=== PATIENT | female | born 1975 | race Caucasian/White ===

== ENCOUNTER 2024-08-12 12:11 | Emergency (ER) | payer OTHER, SELFPAY ==
[2024-08-12] VITALS (11 sets, daily range): BP systolic 98–125; BP diastolic 58–81; BMI 24.5
[2024-08-12 12:41] LABS: % Basophils 1.3 % (0-2); % Eosinophils 2.8 % (0-6); % Immature Granulocytes 0.2 % (0-0.5); % Lymphocytes 30.1 % (20.5-51.1); % Monocytes 7.3 % (1.7-9.3); % Neutrophils 58.3 % (42.2-75.2); Absolute Basophils 0.1 10^3/uL (0-0.2); Absolute Eosinophils 0.2 10^3/uL (0-0.7); Absolute Lymphocytes 2.5 10^3/uL (1.2-3.4); Absolute Monocytes 0.6 10^3/uL (0.1-0.6); Absolute Neutrophils 4.8 10^3/uL (1.4-6.5); Hemoglobin 12.2 g/dL (12.0-16.0); Mean Corp Hgb Conc. 33.9 g/dL (33.0-37.0); Mean Corpuscular Hgb 31.1 pg (27.0-31.0); Mean Corpuscular Volume 91.8 fL (81.0-99.0); Mean Platelet Volume 10.3 fL (7.4-10.4); Nucleated Red Blood Cells % 0 %; Platelet Count 266 10^3/uL (130-400); Red Blood Cell Count 3.92 10^6/uL (4.20-5.40); Red Cell Dist. Width 12.1 % (11.5-14.5); White Blood Cell Count 8.3 10^3/uL (4.8-10.8)
[2024-08-12 12:54] LABS: ALT (SGPT) 13 U/L (0-35); AST (SGOT) 17 U/L (14-36); Albumin 4.2 g/dl (3.5-5.0); Alkaline Phosphatase 42 U/L (38-126); Blood Urea Nitrogen 19 mg/dl (7-17); Calcium 9.5 mg/dl (8.4-10.2); Carbon Dioxide 27 mmol/L (22-30); Chloride 101 mmol/L (98-107); Glucose 112 mg/dl (70-99); Potassium 4.2 mmol/L (3.5-5.1); Sodium 139 mmol/L (135-145); Total Bilirubin 0.3 mg/dl (0.2-1.3); Total Protein 6.8 g/dl (6.3-8.2); eGFR > 60.00
[2024-08-12 13:07] LABS: Troponin I < 0.012 ng/ml
--- NOTE | 2024-08-12 13:20 | ED.GENMED ---
History of Present Illness
<Jonas Gotti, DO - Last Filed: 08/12/24 15:51>
General
Chief Complaint: Anxiety
Source: patient, spouse, family and ambulance crew
Exam Limitations: none
Time Seen by Provider: 08/12/24 13:19
Nursing documentation reviewed up to this point in time: agreed with
History of Present Illness
History of Present Illness:
48-year-old female presents emergency department after being out to lunch, having tremors, panicking hyperventilating and feeling her entire body was numb. Her lowered her to the ground. She was responsive answering questions during this
time. She complains of right-sided chest pain and a headache.
Past History
<Jonas Gotti, DO - Last Filed: 08/12/24 15:51>
Past History
ED Past Medical History: Cancer (Thyroid), HTN, Psychiatric (Depression and anxiety) and Other (Migraines)
Social History
Tobacco: Former smoker
Alcohol: Former
Personal:
Living: with family
Review of Systems
<Jonas Gotti, DO - Last Filed: 08/12/24 15:51>
Review of Systems
Allergies reviewed?: Yes
All Other Systems: Not applicable
Constitutional: Reports no symptoms
EENT: Reports no symptoms
Respiratory: Reports no symptoms
Cardiac: Reports chest pain and syncope (Near syncope)
ABD/GI: Reports no symptoms
: Reports no symptoms
Musculoskeletal: Reports no symptoms
Skin: Reports no symptoms
Neurological: Reports no symptoms
Endocrine: Reports no symptoms
Hematologic/Lymphatic: Reports no symptoms
Psychiatric: Reports no symptoms
Phy Exam
<Jonas Gotti, DO - Last Filed: 08/12/24 15:51>
Physical Exam
Physical Exam:
Physical Exam
General: no apparent distress, not acutely ill
Neck: supple. no meningeal signs. normal posterior pharynx
Heart: s1/s2 regular rate and rhythm, no murmur. equal radial
pulses.
HEENT: Pupils equal round reactive to light, EOMI
Lungs: no acute respiratory distress. clear bilaterally
Abdomen: normal bowel sounds. not tender. no CVAT
Neuro: alert and oriented. no focal neurological deficits cranial nerves II through XII intact
Skin: no rash
Psychiatric: well kept. interactive and cooperative
Extremities: no edema. no calf tenderness. negative homans. good distal pulses
Course
<oJnas Gotti, DO - Last Filed: 08/12/24 15:51>
Orders/Labs/Results
Orders:
Orders
08/12/24 12:19
ECG [Electrocardiogram (*1)] Urgent
Reason for Study: Chest Pain
EKG- Treatment ONCE
08/12/24 12:31
Complete Blood Count/With Diff Urgent
Comprehensive Metabolic Panel Urgent
HCG, Serum Qualitative Screen Urgent
Comment: ADD ON
TSH Reflex To Free T4 Urgent
Troponin I Urgent
08/12/24 13:40
CT Head W/o Iv Contrast Urgent
Comment:
Reason For Exam: headache, near syncope
08/12/24 13:41
D-Dimer Urgent
Troponin I Urgent
08/12/24 13:44
Add On- LAB Urgent
Tests Added?: hcg qual
08/12/24 14:50
Add On- LAB Urgent
Tests Added?: serum HCG qual
08/12/24 18:07
0.9% Sodium Chloride 1000 ml [Nss] 1,000 ml IV BOLUS
Ketorolac [Toradol] 15 mg IV NOW STA
Abnormal Lab Results
08/12/24
12:31
RBC 3.92 L 10^6/uL
(4.20-5.40)
Hct 36.0 L %
(37.0-47.0)
MCH 31.1 H pg
(27.0-31.0)
BUN 19 H mg/dl
(7-17)
Glucose 112 H mg/dl
(70-99)
08/12/24 12:31
08/12/24 12:31
Vital Signs
Initial and Last Documented VS:
Initial Vital Signs
Temp Pulse Resp BP Pulse Ox
98.1 F 81 18 122/70 99
08/12/24 12:12 08/12/24 12:12 08/12/24 12:12 08/12/24 12:12 08/12/24 12:12
Last Documented Vital Signs
Temp Pulse Resp BP Pulse Ox
98.1 F 66 12 115/69 99
08/12/24 12:12 08/12/24 19:31 08/12/24 19:23 08/12/24 19:31 08/12/24 19:31
<Renato Hall, DO - Last Filed: 08/12/24 19:56>
Orders/Labs/Results
Orders:
Orders
08/12/24 12:19
ECG [Electrocardiogram (*1)] Urgent
Reason for Study: Chest Pain
EKG- Treatment ONCE
08/12/24 12:31
Complete Blood Count/With Diff Urgent
Comprehensive Metabolic Panel Urgent
HCG, Serum Qualitative Screen Urgent
Comment: ADD ON
TSH Reflex To Free T4 Urgent
Troponin I Urgent
08/12/24 13:40
CT Head W/o Iv Contrast Urgent
Comment:
Reason For Exam: headache, near syncope
08/12/24 13:41
D-Dimer Urgent
Troponin I Urgent
08/12/24 13:44
Add On- LAB Urgent
Tests Added?: hcg qual
08/12/24 14:50
Add On- LAB Urgent
Tests Added?: serum HCG qual
08/12/24 18:07
0.9% Sodium Chloride 1000 ml [Nss] 1,000 ml IV BOLUS
Ketorolac [Toradol] 15 mg IV NOW STA
Abnormal Lab Results
08/12/24
12:31
RBC 3.92 L 10^6/uL
(4.20-5.40)
Hct 36.0 L %
(37.0-47.0)
MCH 31.1 H pg
(27.0-31.0)
BUN 19 H mg/dl
(7-17)
Glucose 112 H mg/dl
(70-99)
08/12/24 12:31
08/12/24 12:31
Vital Signs
Initial and Last Documented VS:
Initial Vital Signs
Temp Pulse Resp BP Pulse Ox
98.1 F 81 18 122/70 99
08/12/24 12:12 08/12/24 12:12 08/12/24 12:12 08/12/24 12:12 08/12/24 12:12
Last Documented Vital Signs
Temp Pulse Resp BP Pulse Ox
98.1 F 66 12 115/69 99
08/12/24 12:12 08/12/24 19:31 08/12/24 19:23 08/12/24 19:31 08/12/24 19:31
<Jonas Gotti, DO - Last Filed: 08/12/24 15:51>
MDM/Problems Addressed
Differential Diagnosis Includes:
Syncope, anxiety, intracranial hemorrhage, dysrhythmia
MDM/Problems Addressed:
48-year-old female with near syncope attack. No signs of dysrhythmia. Patient also had headache. CT head pending. If negative patient may discharge home
Chronic conditions affecting care: HTN and Psychiatric illness (Bipolar)
Acute Exacerbation and/or Progression of Chronic Illness: HTN and Psychiatric illness (Bipolar, anxiety)
<Jonas Gotti, DO - Last Filed: 08/12/24 15:51>
*Pulse Oximetry
Patient hypoxic: no
*EKG
Interpreted by ED Provider?: Yes
EKG Intrepretation Date: 08/12/24
EKG Intrepretation Time: 12:26
Interpretation: normal
Comparison EKG: no comparison EKG present
Heart Rate: 83
Rate: normal
Rhythm: sinus
[place]: normal axis
Interval: normal interval
QRS Pattern: normal QRS
Ischemia: no ischemia
<Renato Hall, DO - Last Filed: 08/12/24 19:56>
*Critical Care Note
Total Time (30-74mins, 75-104mins- exclusive of procedures): Not Applicable
<Renato Hall, DO - Last Filed: 08/12/24 19:56>
Update Note
Update Note:
CT head unremarkable. I evaluated patient at bedside. She tells me that she feels very weak, feels dehydrated, and still has a headache. Will add Toradol and saline. On reassessment 7:55 p.m., the patient now feels significant proved after the
fluids and Toradol.
ED Attending Note
<Jonas Gotti, DO - Last Filed: 08/12/24 15:51>
-
Portions of this chart may have been created with voice recognition software.� Occasional wrong word or��sound alike� substitutions may have occurred due to the inherent limitations of voice recognition software.
Discharge Plan
Departure
Discharge Problem:
Near syncope
Instructions: Syncope (fainting)
Prescriptions:
No Action
meclizine 25 MG tablet
25 mg PO Q8HPRN PRN (Reason: nausea or vertigo) Qty: 30 0RF
Referrals:
Lelo Anaya PA-C [Family Provider] - Call in 1-3 days for appt
Interventions
Interventions:
*Risk Screen - Suicide Last Done: 08/12/24 17:13
*General Assessment Last Done: 08/12/24 12:20
*Neglect/Abuse Screening Last Done: 08/12/24 13:50
ED- Fall Risk Assessment Last Done: 08/12/24 17:14
*ED COVID-19 Vaccine History Last Done: 08/12/24 12:20
ED-Psychological Assessment Last Done: 08/12/24 13:50
Discharge Date and Time
Print Language: [id number]
[2024-08-12 13:25] LABS: TSH Reflex To Free T4 0.75 uIU/ml (0.47-4.68)
[2024-08-12 14:22] LABS: D-Dimer < 0.27 ug/mlFEU (0.00-0.50)
[2024-08-12 14:38] LABS: Troponin I < 0.012 ng/ml
[2024-08-12 16:39] LABS: HCG, Serum Qualitative Screen Negative
[2024-08-12] MEDS: NSS 1000 IV (18:10)
[2024-08-12] MEDS: TORADOL 15 MG IV (18:10)
== END 2024-08-12 20:35 | disposition home or self-care (01) ==
LOC: EMR 12:11
PROVIDERS: EMERGENCY PHYSICIAN Emergency Medicine; FAMILY PHYSICIAN Physician Assistant
DX: R55 Syncope and collapse (principal); R51.9 Headache, unspecified; R07.9 Chest pain, unspecified; F31.9 Bipolar disorder, unspecified; F41.9 Anxiety disorder, unspecified; I10 Essential (primary) hypertension; F32.A Depression, unspecified; K21.9 Gastro-esophageal reflux disease without esophagitis; F41.0 Panic disorder [episodic paroxysmal anxiety]; Z85.850 Personal history of malignant neoplasm of thyroid; Z87.891 Personal history of nicotine dependence
CPT/HCPCS: 99285; 96374; 96361; 70450; 80053; 84443; 84484; 84703; 85025; 85379; 93005